=== PATIENT | male | born 1955 | race Asian ===

== ENCOUNTER 2024-11-05 13:47 | Emergency (ER) | payer MEDICAID, SELFPAY ==
[2024-11-05 13:53] VITALS: BP 158/79
[2024-11-05 14:26] LABS: % Basophils 0.7 % (0-2); % Eosinophils 0.1 % (0-6); % Immature Granulocytes 0.5 % (0-0.5); % Lymphocytes 7.2 % (20.5-51.1); % Monocytes 8.1 % (1.7-9.3); % Neutrophils 83.4 % (42.2-75.2); Absolute Basophils 0.1 10^3/uL (0-0.2); Absolute Immature Granulocytes 0.1 10^3/uL (0-0.05); Absolute Lymphocytes 0.7 10^3/uL (1.2-3.4); Absolute Monocytes 0.8 10^3/uL (0.1-0.6); Absolute Neutrophils 8.1 10^3/uL (1.4-6.5); Hematocrit 42.1 % (39.0-52.0); Hemoglobin 14.2 g/dL (13.0-18.0); Mean Corp Hgb Conc. 33.7 g/dL (33.0-37.0); Mean Corpuscular Hgb 29.7 pg (27.0-31.0); Mean Corpuscular Volume 88.1 fL (80.0-94.0); Mean Platelet Volume 10.8 fL (7.4-10.4); Nucleated Red Blood Cells % 0 % (-); Platelet Count 239 10^3/uL (130-400); Red Blood Cell Count 4.78 10^6/uL (4.70-6.10); Red Cell Dist. Width 12.2 % (11.5-14.5); White Blood Cell Count 9.7 10^3/uL (4.8-10.8)
[2024-11-05 14:41] LABS: COVID-19 Antigen Negative (Negative)
[2024-11-05 14:43] LABS: ALT (SGPT) 21 U/L (0-50); AST (SGOT) 23 U/L (17-59); Albumin 4.9 g/dl (3.5-5.0); Alkaline Phosphatase 68 U/L (38-126); Blood Urea Nitrogen 33 mg/dl (9-20); Calcium 9.4 mg/dl (8.4-10.2); Carbon Dioxide 23 mmol/L (22-30); Chloride 102 mmol/L (98-107); Glucose 159 mg/dl (70-99); Potassium 4.2 mmol/L (3.5-5.1); Sodium 138 mmol/L (135-145); Total Bilirubin 0.8 mg/dl (0.2-1.3); Total Protein 7.8 g/dl (6.3-8.2); eGFR > 60.00
[2024-11-05 18:07] VITALS: BP 146/84; BMI 25.8
--- NOTE | 2024-11-05 18:19 | ED.GENMED ---
History of Present Illness
General
Chief Complaint: Cold/Flu/URI Symptoms
Source: patient and spouse
Time Seen by Provider: 11/05/24 18:00
History of Present Illness
History of Present Illness:
69-year-old male with past medical history of CABG, insulin-dependent diabetes, hypertension, hypercholesterolemia presenting to the emergency department for evaluation after experiencing fevers, cough, nasal congestion, body aches/joint pain,
generalized malaise and fatigue over the last 48 hours, today was having an increased difficult time getting up and ambulating (uses a walker at baseline) prompting to contact EMS. Upon arrival it was noted patient had a temperature of 100.3,
unsure if he took any medications today. No known sick contacts, recent travel or recent antibiotics. Patient denies any GI related illness, urinary symptoms, rashes or any other concerns
Past History
Past History
ED Past Medical History: CAD, HTN, Hypercholesterolemia and IDDM
ED Past Surgical History: Cardiac and Tonsilectomy
Social History
Tobacco: Non-smoker
Alcohol: None
Drug: None
Personal:
Living: with family
Review of Systems
Review of Systems
All Other Systems: ROS reviewed and negative except as documented in HPI and ROS
Phy Exam
Physical Exam
Physical Exam:
GENERAL: Alert , in no apparent distress, ill-appearing but nontoxic
HEAD: Normocephalic atraumatic
EYE: conjunctiva clear
NECK: Supple, no significant adenopathy.
ENT: o/p clr, mmm.
CARDIAC: Regular rate and rhythm, borderline tachycardic rate and rhythm
LUNGS: Clear breath sounds bilaterally, no acute respiratory distress, no wheezes/rales/rhonchi
NEUROLOGICAL: Alert and oriented
SKIN: Warm and dry, skin intact.
MUSCULOSKELETAL: well perfused.
PSYCH: Normal and appropriate interaction.
Scores
Heart Failure Risk
Heart Failure Risk Score: Not Applicable
Heart Score for Chest Pain Patients
STEMI patient?: Not applicable
Withdrawal Assessment of Alcohol
Withdrawal Assessment Completed?: Not applicable
Course
Orders/Labs/Results
Orders:
Orders
11/05/24 14:02
COVID-19 Antigen Urgent
Source: Nasal Swab
Complete Blood Count/With Diff Urgent
Comprehensive Metabolic Panel Urgent
Influenza A+B Rapid Molecular Urgent
JACINTA Source: Nasal Swab
Specimen Description:
11/05/24 18:18
Acetaminophen [Tylenol] 1,000 mg PO NOW STA
Abnormal Lab Results
11/05/24
14:02
MPV 10.8 H fL
(7.4-10.4)
Abs Immat Gran (auto) 0.1 H 10^3/uL
(0-0.05)
Absolute Neuts (auto) 8.1 H 10^3/uL
(1.4-6.5)
Absolute Lymphs (auto) 0.7 L 10^3/uL
(1.2-3.4)
Absolute Monos (auto) 0.8 H 10^3/uL
(0.1-0.6)
Neutrophils % 83.4 H %
(42.2-75.2)
Lymphocytes % 7.2 L %
(20.5-51.1)
BUN 33 H mg/dl
(9-20)
Glucose 159 H mg/dl
(70-99)
11/05/24 14:02
11/05/24 14:02
Vital Signs
Initial and Last Documented VS:
Initial Vital Signs
Temp Pulse Resp BP Pulse Ox
100.3 F 105 16 158/79 98
11/05/24 13:53 11/05/24 13:53 11/05/24 13:53 11/05/24 13:53 11/05/24 13:53
Last Documented Vital Signs
Temp Pulse Resp BP Pulse Ox
98.5 F 106 18 131/65 98
11/05/24 20:04 11/05/24 18:07 11/05/24 20:04 11/05/24 20:04 11/05/24 18:07
MDM/Problems Addressed
Differential Diagnosis Includes:
COVID, flu, pneumonia, diabetic complication, less concern for urinary tract infection or other GI related illness
MDM/Problems Addressed:
69-year-old male presenting the ER for evaluation of flulike symptoms over the last 48 hours, today is concerned with patient's generalized fatigue/malaise. Upon arrival patient was found to be borderline febrile at 100.3 and borderline
tachycardic. Labs, COVID and flu testing were initiated with patient testing positive for influenza A. Will give additional Tylenol. Patient tolerating p.o. here. Prior to discharge will attempt to ambulate patient with a walker to ensure
safety. Disposition pending.
Chronic conditions affecting care: DM and CAD
*Pulse Oximetry
Patient hypoxic: no
*Critical Care Note
Total Time (30-74mins, 75-104mins- exclusive of procedures): Not Applicable
Patient Management
Escalation/DeEscalation of care consider admission/obs:
Patient was able to ambulate using a walker although was still somewhat weak while doing this. Both he and family felt comfortable taking him home given his known diagnosis. Patient and family were advised on return precautions to the ER.
Prescription for Tamiflu sent to patient's pharmacy. Stable for discharge home.
ED Attending Note
-
Portions of this chart may have been created with voice recognition software.� Occasional wrong word or��sound alike� substitutions may have occurred due to the inherent limitations of voice recognition software.
Discharge Plan
Departure
Patient Disposition: Home (Routine Discharge)
Date of Disposition: 11/05/24
Time of Disposition: 20:05
Patient with high blood pressure during this ER visit?: Yes
Discharge Problem:
Influenza A
Instructions: Flu in adults - Discharge instructions
Prescriptions:
New
oseltamivir [Tamiflu] 75 mg capsule
75 mg PO BID 5 Days Qty: 10 0RF
No Action
atorvastatin 20 mg Tablet
20 mg PO DAILY
clopidogrel [Plavix] 75 mg Tablet
75 mg PO DAILY
amlodipine 5 mg Tablet
5 mg PO BID
aspirin 81 mg Tablet
81 mg PO DAILY
lisinopril 5 mg Tablet
5 mg PO BID
insulin glargine [Lantus Solostar U-100 Insulin] 100 unit/mL (3 mL) Insulin Pen
40 - 50 unit SC DAILY
Referrals:
QUANG HARPER DO [Family Provider] -
Interventions
Interventions:
*Risk Screen - Suicide Last Done: 11/05/24 13:53
*General Assessment Last Done: 11/05/24 18:07
*Neglect/Abuse Screening Last Done: 11/05/24 13:53
ED- Fall Risk Assessment Last Done: 11/05/24 18:07
*ED COVID-19 Vaccine History Last Done: 11/05/24 18:07
*Nursing Disposition Last Done: 11/05/24 20:32
ED- Pulmonary Assessment Last Done: 11/05/24 18:07
Discharge Date and Time
Discharge Date/Time: 11/05/24 20:32
Print Language: MONEGASQUE
[2024-11-05] MEDS: TYLENOL 1000 MG PO (18:36)
[2024-11-05 20:04] VITALS: BP 131/65
== END 2024-11-05 20:32 | disposition home or self-care (01) ==
LOC: EMR 13:47
PROVIDERS: Emergency Medicine; EMERGENCY PHYSICIAN Student in an Organized Health Care Education/Training Program; FAMILY PHYSICIAN Internal Medicine
DX: J10.1 Influenza due to other identified influenza virus with other respiratory manifestations (principal); E11.9 Type 2 diabetes mellitus without complications; I10 Essential (primary) hypertension; E78.00 Pure hypercholesterolemia, unspecified; I25.10 Atherosclerotic heart disease of native coronary artery without angina pectoris; Z79.4 Long term (current) use of insulin; Z95.1 Presence of aortocoronary bypass graft
CPT/HCPCS: 99283; 80053; 85025; 87502; 87811